=== PATIENT | male | born 1950 | race Caucasian/White ===

== ENCOUNTER → 2018-03-21 | Outpatient (CLI) | payer MEDICARE, OTHER ==
[~2018-03-21] MED LIST: AMLO2.5T74 PO; DOCO1CAP17 PO; FIN5 PO; LOSA-54 PO; NIACIN; POTA20TA85 PO
--- NOTE | 2018-03-21 15:08 | EKG ---
FACILITY: [facility] PATIENT NAME: KALINA SALCEDO : [id number] MR: [id number] V: [id number] EXAM DATE: ORDERING PHYSICIAN: YUMIKO SOLIS TECHNOLOGIST: CARSON TAN Test Reason : PALPITATIONS Blood Pressure : / mmHG Vent. Rate : 062 BPM Atrial Rate : 062 BPM P-R Int : 134 ms QRS Dur : 086 ms QT Int : 422 ms P-R-T Axes : 038 017 -19 degrees QTc Int : 428 ms Normal sinus rhythm Nonspecific ST abnormality Abnormal ECG No previous ECGs available Referred By: Confirmed By:
[2018-03-21 15:20] LABS: PLATELET COUNT, AUTOMATED 184 K/uL (150-450)
== END ==
LOC: LAB 15:00
PROVIDERS: ATTEND Nurse Practitioner Primary Care
DX: R94.31 Abnormal electrocardiogram [ECG] [EKG] (principal)
CPT/HCPCS: 36415; 82040; 82247; 82310; 82374; 82435; 82565; 82947; 83735; 84075; 84132; 84155; 84295; 84443; 84450; 84460; 84520; 85025

== ENCOUNTER → 2018-03-21 | Outpatient (CLI) | payer MEDICARE, OTHER | LOC: RESP 15:53 | PROVIDERS: ATTEND Nurse Practitioner Primary Care | DX: I49.3 Ventricular premature depolarization (principal) | CPT/HCPCS: 93225; 93226 ==

== ENCOUNTER → 2018-08-03 | Outpatient (CLI) | payer MEDICARE, OTHER ==
[~2018-08-03] MED LIST changes: -AMLO2.5T74 PO; +AMLO2.5T76 PO
--- NOTE | 2018-08-03 14:22 | RADIOLOGY IMAGING REPORT ---
FACILITY: [facility] PATIENT NAME: Adam Jamil : 1950 MR: [id number] V: [id number] EXAM DATE: ORDERING PHYSICIAN: MARCELINO NAM TECHNOLOGIST: Location: [facility] Patient: Adam Jamil : 1950 Visit/Account:[id number] Date of Sevice: 08/03/2018 KIDNEYS EXAMINATION: Renal ultrasound. History: Right renal stone and cyst COMPARISON STUDIES: CT January 20, 2017 FINDINGS: Kidneys: Right kidney- 11.1 x 5.3 x 5.7 cm Left kidney- 10.7 x 6.3 x 5.4 cm Uniform and symmetric blood flow in each kidney by Doppler ultrasound. Hydronephrosis: none There is a 4 cm cyst lower pole the right kidney. Is a mildly lobular contour to both kidneys. Bladder: Urinary bladder prevoid volume 185 mL. Post void residual 44 mL. Bilateral ureteral jets a re present. Prostate gland appears enlarged impinging upon the floor the bladder Abdominal aorta and IVC: Aorta and IVC are patent by Doppler ultrasound. IMPRESSION: Four center cyst projects from the lower pole the right kidney Prostate gland appears enlarged Report Dictated By: Page Blount MD at 08/03/2018 2:15 PM Report E-Signed By: Page Blount MD at 08/03/2018 2:18 PM WSN:[id number]
== END ==
LOC: US 06:48
PROVIDERS: ATTEND Urology
DX: N28.1 Cyst of kidney, acquired (principal); N40.0 Benign prostatic hyperplasia without lower urinary tract symptoms
CPT/HCPCS: 76705

== ENCOUNTER → 2019-01-15 | Outpatient (CLI) | payer MEDICARE, OTHER ==
[~2019-01-15] MED LIST changes: -AMLO2.5T76 PO; +AMLO2.5T78 PO
== END ==
LOC: LAB 12:12
PROVIDERS: ATTEND Urology
DX: R30.0 Dysuria (principal); R35.0 Frequency of micturition
CPT/HCPCS: 81001; 87088